=== PATIENT | female | born 1985 | race Caucasian/White ===

== ENCOUNTER 2017-11-09 13:58 | Inpatient (IN) | payer OTHER ==
[~2017-11-09] VITALS: Ht 149.9 cm; Wt 2.7 kg
[2017-11-09] MEDS ORDERED: PRENATABS RX T1 EACH PO (15:05)
== END 2017-11-24 11:04 | disposition home or self-care (01) | DRG 766 ==
LOC: OB/GYN 11-21 00:56 → LDR 11-21 00:56 → OB/GYN 11-21 12:35
PROVIDERS: Obstetrics & Gynecology Maternal & Fetal Medicine
PROC: 0UL70ZZ Occlusion of Bilateral Fallopian Tubes, Open Approach (ICD-10-PCS; 2017-11-21)
PROC: 4A033R1 Measurement of Arterial Saturation, Peripheral, Percutaneous Approach (ICD-10-PCS; 2017-11-21)
PROC: 4A1HXCZ Monitoring of Products of Conception, Cardiac Rate, External Approach (ICD-10-PCS; 2017-11-21)
PROC: 10D00Z1 Extraction of Products of Conception, Low, Open Approach (ICD-10-PCS; principal; 2017-11-21 09:00)
DX: O98.82 Other maternal infectious and parasitic diseases complicating childbirth (principal); B95.1 Streptococcus, group B, as the cause of diseases classified elsewhere; Z3A.38 38 weeks gestation of pregnancy; Z37.0 Single live birth; Z30.2 Encounter for sterilization

== ENCOUNTER 2017-11-16 10:23 | Outpatient (CLI) | payer OTHER ==
[~2017-11-16 10:23] MED LIST: PRENATABS RX T1 EACH PO
== END 2017-11-16 11:20 | disposition home or self-care (01) ==
LOC: NST 10:23
DX: Z34.83 Encounter for supervision of other normal pregnancy, third trimester (principal)